=== PATIENT | male | born 1990 | race Caucasian/White ===

== ENCOUNTER 2022-08-19 23:44 | Emergency (ER) | payer BC, OTHER ==
[2022-08-19 23:53] VITALS: BP 147/78; PULSE 90; RESP 14; TEMP 98.1; BMI 42.8
[2022-08-20] MEDS ORDERED: ACETAMINOPHEN 500 MG TABLET (FP) PO ONE (00:57)
[2022-08-20] MEDS ORDERED: ACETAMINOPHEN 500 MG TABLET (FP) ONE (01:27)
== END 2022-08-20 01:34 | disposition home or self-care (01) ==
LOC: JER 23:44
DX: L72.3 Sebaceous cyst (principal); B35.0 Tinea barbae and tinea capitis
CPT/HCPCS: 99283-25